=== PATIENT | male | born 1955 | race Caucasian/White ===

== ENCOUNTER → 2019-03-27 | Outpatient (CLI) | payer OTHER ==
[~2019-03-27] MED LIST: ALEVE220 MG PO; AMLODIPINE BESYL5 M1 PO; ASPIR 8181 MG PO; ASPIRIN81 M2 PO; ATORVASTATIN CA40 MG PO; CO Q-10100 MG PO; COLACE100 MG PO; COZAAR 50 MG TA50 MG PO; CRESTOR10 MG PO; EFFIENT10 MG PO; FAMOTIDINE20 MG PO; HYZAAR 100-251 EACH PO; IBUPROFEN 200200 M1 PO; LIPITOR40 MG PO; LOPRESSOR 50 MG50 M1 PO; LORTAB 7.5/5001 TA3 PO; LORTAB OR; NAPROXEN DELAY500 M1 PO; NITROSTAT0.4 MG SUBLING; NORVASC 5 MG TAB5 MG PO; PLAVIX 75 MG TA75 M1 PO; TOPROL XL50 MG PO; TYLENOL325 MG PO; UNISOM SLEEP AI25 MG PO
== END ==
LOC: RAD 12:44
DX: M25.78 Osteophyte, vertebrae (principal); M48.061 Spinal stenosis, lumbar region without neurogenic claudication

== ENCOUNTER → 2019-04-03 | Outpatient (CLI) | payer OTHER | LOC: MRI 07:11 | DX: M51.16 Intervertebral disc disorders with radiculopathy, lumbar region (principal); M43.17 Spondylolisthesis, lumbosacral region; M48.062 Spinal stenosis, lumbar region with neurogenic claudication; M12.88 Other specific arthropathies, not elsewhere classified, other specified site ==